=== PATIENT | female | born 1970 | race Caucasian/White ===

== ENCOUNTER 2024-10-03 12:12 | Outpatient (RCR) | payer BC, SELFPAY | END 2024-10-03 23:59 | disposition home or self-care (01) | LOC: ROT 12:12 | PROVIDERS: ATTENDING PHYSICIAN Surgery Surgery of the Hand; FAMILY PHYSICIAN Family Medicine | DX: Z47.89 Encounter for other orthopedic aftercare (principal); G56.01 Carpal tunnel syndrome, right upper limb; G56.21 Lesion of ulnar nerve, right upper limb; Z73.6 Limitation of activities due to disability | CPT/HCPCS: 97022; 97110; 97140; 97166; 97535 ==

== ENCOUNTER 2024-10-28 12:33 | Outpatient (RCR) | payer BC, SELFPAY | END 2024-10-28 23:59 | disposition home or self-care (01) | LOC: ROT 12:33 | PROVIDERS: ATTENDING PHYSICIAN Surgery Surgery of the Hand; FAMILY PHYSICIAN Family Medicine | DX: Z47.89 Encounter for other orthopedic aftercare (principal); G56.01 Carpal tunnel syndrome, right upper limb; G56.21 Lesion of ulnar nerve, right upper limb; Z73.6 Limitation of activities due to disability | CPT/HCPCS: 97018; 97022; 97110; 97140; 97535 ==

== ENCOUNTER 2024-11-28 12:16 | Outpatient (RCR) | payer BC, SELFPAY | END 2024-11-28 23:59 | disposition home or self-care (01) | LOC: ROT 12:16 | PROVIDERS: ATTENDING PHYSICIAN Surgery Surgery of the Hand; FAMILY PHYSICIAN Family Medicine | DX: Z47.89 Encounter for other orthopedic aftercare (principal); G56.01 Carpal tunnel syndrome, right upper limb; G56.21 Lesion of ulnar nerve, right upper limb; Z73.6 Limitation of activities due to disability | CPT/HCPCS: 97018; 97110; 97140 ==

== ENCOUNTER 2024-12-19 09:39 | Outpatient (RCR) | payer BC, SELFPAY | END 2024-12-19 23:59 | disposition home or self-care (01) | LOC: ROT 09:39 | PROVIDERS: ATTENDING PHYSICIAN Surgery Surgery of the Hand; FAMILY PHYSICIAN Family Medicine | DX: Z47.89 Encounter for other orthopedic aftercare (principal); G56.01 Carpal tunnel syndrome, right upper limb; G56.21 Lesion of ulnar nerve, right upper limb; Z73.6 Limitation of activities due to disability | CPT/HCPCS: 97018; 97035; 97110; 97140; 97535 ==